=== PATIENT | female | born 1995 | race Caucasian/White ===

== ENCOUNTER 2025-05-26 19:51 | Emergency (ER) | payer OTHER ==
[~2025-05-26] VITALS: Ht 152.4 cm; Wt 78.7 kg
[2025-05-26] MEDS ORDERED: SLYND4 MG PO (21:27)
[2025-05-26 21:30] LABS: BLOOD/HGB, URINE NEGATIVE (Negative); KETONE, URINE TRACE (Negative); LEUK ESTERASE, URINE TRACE (negative); NITRITE, URINE NEGATIVE (negative)
[2025-05-26 21:37] LABS: BACTERIA, URINE 2+ /hpf (negative); CASTS, URINE NONE SEEN \\lpf; CRYSTALS, URINE NONE SEEN (0-1+); REFLEX CULTURE, URINE Yes (No)
[2025-05-26 21:38] LABS: EPITHELIAL CELLS, URINE SQUAMOUS 1+ /lpf (0-1+)
[2025-05-26 22:03] LABS: BASOPHILS 0.9 % (0.1-1.2); EOSINOPHILS 2.6 % (0.7-5.8); LYMPHOCYTES 30.8 % (19.3-51.7); MCH 31.5 PG (25.6-32.2); MCHC 35.4 g/dL (32.2-35.5); MCV 89.2 fL (79.4-94.8); MONOCYTES 5.7 % (4.7-12.5); NEUTROPHILS 59.9 % (34.0-71.1); RBC 4.25 M/uL (3.93-5.22)
[2025-05-26 22:24] LABS: ALT (SGPT) 1305.0 U/L (14-59); AST (SGOT) 405.0 U/L (15-37); GLOMERULAR FILTRATION RATE,EST 121.0 mL/min (>60); PROTEIN, TOTAL 6.9 g/dL (6.4-8.2); UREA NITROGEN 10.0 mg/dL (7-18)
[2025-05-26] MEDS ORDERED: NITROFURANTOIN MONOHYD MACROCR 100 MG HOME.PACK PO ONE (22:30)
[2025-05-26] MEDS ORDERED: FAMOTIDINE 20 MG/ 2 ML VIAL IV ONE (22:30)
[2025-05-27] MEDS ORDERED: MACROBID 100 M100 MG PO (00:10)
[2025-05-27 00:21] VITALS: BP 107/73
[2025-05-28 18:01] LABS: HEPATITIS A ANTIBODY, IGM Negative (Negative); HEPATITIS C AB CIA INTERP Negative (Negative); HEPATITIS C ANTIBODY CIA INDEX 0.05 IV (())
== END 2025-05-27 00:22 | disposition home or self-care (01) ==
LOC: ED 19:51
PROVIDERS: Internal Medicine
DX: N39.0 Urinary tract infection, site not specified (principal); R79.89 Other specified abnormal findings of blood chemistry; Z79.899 Other long term (current) drug therapy
CPT/HCPCS: 36415; 76705; 80053; 80074; 81001; 82550; 83690; 84703; 85025; 87088; 96374; 96375; 99284-25; J1200